=== PATIENT | female | born 1980 | race Caucasian/White ===

== ENCOUNTER 2017-04-19 17:33 | Emergency (ER) | payer MEDICAID, OTHER ==
[~2017-04-19] VITALS: Ht 152.4 cm; Wt 113.0 kg
[~2017-04-19 17:33] MED LIST: Z.0.NO CURRENT MEDS
[2017-04-19 17:34] VITALS: BP 180/95; PULSE 80; RESP 16; TEMP 98.2; O2SAT 99
--- NOTE | 2017-04-19 17:47 | PD ---
Physical Exam Narrative 36yo F c/o left 3rd finger injury on Sunday. Finger got caught in a book bag and strained it. Patient seen in triage. VS reviewed. Awaiting bed placement. Data Data Last Documented VS Vital Signs Date Time Temp Pulse Resp B/P Pulse Ox O2 Delivery O2 Flow Rate FiO2 04/19/17 17:34 98.2 80 16 180/95 99 MDM Supervised Visit with NOAH: Linda Hebert Apr 19, 2017 17:47
--- NOTE | 2017-04-19 18:27 | PD ---
HPI Chief Complaint: Injury Time Seen by Provider: 18:25 Travel History International Travel<30 days: No Contact w/Intl Traveler<30days: No Traveled to known affect area: No History of Present Illness HPI 36-year-old female process emergency Department with injury to the left middle finger. Patient was handing her bookbag to another person when they were pulling at, her finger became entangled and twisted. Patient has pain and swelling and ecchymosis along the entire length of the left middle finger. She denies numbness. Range of motion is limited secondary to pain. There was no obvious deformity according to the patient. This happened just prior to arrival to the emergency department. She has no other injuries. Her pain is described as an 8 out of 10. She has no known drug allergies. PFSH Past Medical History Asthma: Yes Blood Disorders: No Anxiety: No Depression: Yes Cancer: No Cardiovascular Problems: No COPD: No Diminished Hearing: No Endocrine: No Genitourinary: No Immune Disorder: No Musculoskeletal: No Neurologic: No Psychiatric: Yes Reproductive: No Respiratory: Yes Sleep Apnea: No ?: Unknown : 1 Para: 1 Tubal Ligation: Yes Social History Alcohol Use: Yes (RARE) Tobacco Use: Yes (1 CIGARETTE A DAY) Substance Use: No Allergies-Medications (Allergen,Severity, Reaction): Coded Allergies: Penicillin (Verified Allergy, Severe, Hives, 04/19/17) Percocet (Verified Allergy, Severe, Hives, 04/19/17) Reported Meds & Prescriptions Reported Meds & Active Scripts Active Reported No Current Meds (Miscellaneous Medication) Misc Review of Systems Except as stated in HPI: all other systems reviewed are Neg General / Constitutional: No: Fever Eyes: No: Visual changes HENT: No: Headaches Cardiovascular: No: Chest Pain or Discomfort Respiratory: No: Shortness of Breath Gastrointestinal: No: Abdominal Pain Genitourinary: No: Dysuria Musculoskeletal: No: Pain Skin: No Rash Neurologic: No: Weakness Psychiatric: No: Depression Endocrine: No: Polydipsia Hematologic/Lymphatic: No: Easy Bruising Physical Exam Narrative GENERAL: Patient appears in mild distress. SKIN: Warm and dry. Normal color. Normal turgor. Patient is small amount of ecchymosis along the entire length of the left third finger. HEAD: Atraumatic. Normocephalic. EYES: Pupils equal and round. No scleral icterus. No injection or drainage. ENT: No nasal bleeding or discharge. Mucous membranes pink and moist. Pharynx is clear. NECK: Trachea midline. Supple. CARDIOVASCULAR: Regular rate and rhythm. RESPIRATORY: No accessory muscle use. Clear to auscultation. Breath sounds equal bilaterally. MUSCULOSKELETAL: Extremities without clubbing, cyanosis, or edema. No obvious deformities. Patient has mild swelling and ecchymosis along the third left phalanx. Range of motion is limited secondary to pain. NEUROLOGICAL: Awake and alert. No obvious cranial nerve deficits. Motor grossly within normal limits. Five out of 5 muscle strength in the arms and legs. Normal speech. PSYCHIATRIC: Appropriate mood and affect; insight and judgment normal. Data Data Last Documented VS Vital Signs Date Time Temp Pulse Resp B/P Pulse Ox O2 Delivery O2 Flow Rate FiO2 04/19/17 17:34 98.2 80 16 180/95 99 Orders Finger (Oyc2ggs) (04/19/17 ) Ice/Cold Pack (04/19/17 18:27) Ibuprofen (Motrin) (04/19/17 18:30) MDM Medical Decision Making Medical Screen Exam Complete: Yes Emergency Medical Condition: Yes Differential Diagnosis Left third finger injury. Left third finger sprain. Left third finger fracture. Narrative Course X-rays ordered in triage. Patient is given ibuprofen 800 mg by mouth now. Ice pack is applied. X-ray shows a tiny avulsion fracture to the dorsal distal phalanx. Carmen tape was applied to the second third and fourth fingers of the left hand. Patient will continue with ibuprofen 600 mg 4 times a day when necessary #40. Patient is to ice the area frequently and keep it carmen taped until fully healed. Patient should follow-up with her primary care physician or return to emergency department as needed. Diagnosis Primary Impression: Fracture of finger of left hand Qualified Code: S62.663A - Closed nondisplaced fracture of distal phalanx of left middle finger, initial encounter Referrals: Primary Care Physician call for appointment Patient Instructions: Finger Fracture (ED), General Instructions Additional Instructions: Patient is given ibuprofen 800 mg by mouth now. Ice pack is applied. X-ray shows a tiny avulsion fracture to the dorsal distal phalanx. Carmen tape was applied to the second third and fourth fingers of the left hand. Patient will continue with ibuprofen 600 mg 4 times a day when necessary #40. Patient is to ice the area frequently and keep it carmen taped until fully healed. Patient should follow-up with her primary care physician or return to emergency department as needed. Med/Other Pt SpecificInfo: Prescription(s) given Scripts Ibuprofen 600 Mg [id number] Mg PO Q6H PRN (Pain/Inflammation) #40 TAB Prov:Justen Malcolm MD 04/19/17 Disposition: 01 DISCHARGE HOME Condition: Stable Archie Sow Apr 19, 2017 18:27
[2017-04-19] MEDS ORDERED: IBUPROFEN 800 MG TAB PO ONE (18:30)
--- NOTE | 2017-04-19 18:45 | RADRPT ---
EXAM DATE/TIME: 04/19/2017 18:16 [facility] COMPARISON: No previous studies available for comparison. INDICATIONS : Twisted middle finger while unpacking on Sunday. MEDICAL HISTORY : None. SURGICAL HISTORY : Hysterectomy. ENCOUNTER: Initial ACUITY: 2 days PAIN SCORE: 10/10 LOCATION: Left hand, third digit. FINDINGS: A tiny linear lucency involving the base of the distal phalanx of the third finger along its ulnar as pect. No attenuation or distraction. Remaining bony structures are unremarkable. CONCLUSION: Tiny avulsion fracture involving the distal phalanx of the third finger. Ruben Rowley Jr., MD on April 19, 2017 at 18:42 Board Certified Radiologist. This report was verified electronically.
[2017-04-19] MEDS ORDERED: IBUP-232 PO (18:49)
== END 2017-04-19 19:28 | disposition home or self-care (01) ==
LOC: NEPK 17:33
DX: S62.663A Nondisplaced fracture of distal phalanx of left middle finger, initial encounter for closed fracture (principal); X50.0XXA Overexertion from strenuous movement or load, initial encounter; Y93.89 Activity, other specified; Y92.89 Other specified places as the place of occurrence of the external cause; Y99.8 Other external cause status
CPT/HCPCS: 73140; 99283